=== PATIENT | male | born 1955 | race Caucasian/White ===

== ENCOUNTER 2017-02-21 11:06 | Emergency (ER) | payer BC, OTHER ==
[~2017-02-21] VITALS: Ht 175.3 cm; Wt 111.5 kg
[~2017-02-21 11:06] MED LIST: ASPI-435 PO; IBUP1CAP9 PO; MULTTAB58 PO
[2017-02-21 11:19] VITALS: TEMP 36.4; Ht 175.3 cm; Wt 111.5 kg
[2017-02-21] MEDS ORDERED: LISI-729 PO (11:26)
[2017-02-21] MEDS ORDERED: ATOR-22 PO (11:26)
[2017-02-21 11:28] VITALS: O2SAT 97
--- NOTE | 2017-02-21 11:57 | EMERGENCY ROOM VISIT NOTE ---
History Report prepared by Iram: Andre Antony Under the Supervision of: Dr. Conor Collado M.D. First contact with patient: 11:38 Chief Complaint: ALLERGIC REACTION Stated Complaint: ALLERGIC RXN Nursing Triage Summary: Pt arrives to ER via ALS s/p bee sting. Pt reports he was stung by a honey bee and approx 5 min later he became dizzy and weak. Pt then had a syncopal episode. Pt was also incontinent. When EMS arrived patient's RA O2 was 85% and they were unable to get a blood pressure. Pt was laid down and they were able to obtain a systolic BP of 100. Pt received 500 mL of NSS and 50 mg of IV benadryl [employer]. Pt also received 4 baby aspirin. Pt reports having flu-like symptoms since Thursday (light-headed, dizzy, nauseated). Pt has hives notable on abdomen and bilateral arms. Pt denies shortness of breath. Pts RA O2 saturation is 97% on arrival. History of Present Illness The patient is a 61 year old male who presents to the Emergency Room via ALS with complaints of a sudden allergic reaction that occurred around 2 and a half hours ago. He says that he was stung by a bee on his left forearm, and then got really lightheaded and passed out. The patient states that he did not hit his head, but was out for about a minute or 2. Per the patient's , the patient has had reactions to bee stings in the past but has never had this severe of a reaction. The patient notes that his tongue got numb when he was first stung, but his tongue and throat did not feel swollen. The patient denies any shortness of breath. He says that he still feels nauseous and a bit woozy. He received IV Benadryl 50 mg prior to arrival as well as 4 baby aspirin by ALS, per the nursing staff. The patient adds that he has had a flu-like illness for the past 4 days, with nausea, dizziness, and lightheadedness. Source of History: patient, spouse/significant other, nursing staff Onset: Around 2 and a half hours ago Position: other (global - allergic reactino) Quality: other (to bee sting) Timing: other (sudden) Associated Symptoms: + LOC, + nausea, + numbness (tongue which has since resolved), No SOB Note: Associated symptoms: Lightheaded, then passed out for a minute or 2. Still feels woozy. Dizziness for 4 days. Denies tongue or throat swelling. Did not hit head. Review of Systems All systems have been listed, reviewed, and are negative other than those previously mentioned. Please see Additional Medical History Sheet. Past Medical & Surgical Medical Problems: (1) Kidney disease Family History Cancer Diabetes mellitus Heart disease Social History Smoking Status: Never Smoker Alcohol Use: none Marital Status: Housing Status: lives with significant other Occupation Status: employed Current/Historical Medications Scheduled Atorvastatin (Lipitor), 20 MG PO DAILY Lisinopril (Prinivil), 5 MG PO DAILY Allergies Coded Allergies: No Known Allergies (Unverified , 02/21/17) Physical Exam Vital Signs Date Time Temp Pulse Resp B/P (MAP) Pulse Ox O2 Delivery O2 Flow Rate FiO2 02/21/17 13:00 56 16 129/68 95 Room Air 02/21/17 12:10 59 14 115/61 98 Room Air 71 143/71 125/67 02/21/17 11:28 97 Room Air 02/21/17 11:20 60 02/21/17 11:19 97 Room Air 02/21/17 11:19 36.4 58 14 131/72 97 Room Air Physical Exam GENERAL: Patient awake, alert, oriented x 3. Patient follows commands. Patient does not appear toxic. Patient is adequately hydrated and well- nourished. SKIN: Erythematous area that is 6 cm in diameter on the left forearm. HEENT: Normal head, pupils equal, reactive to light and accommodation. Oral cavity and posterior pharynx appear normal. Neck: Without adenopathy, no neck vein distention. LUNGS: Clear to auscultation. No wheezes, no rales, no rhonchi. HEART: No murmurs. No gallops. No rubs ABDOMEN: Soft and nontender. EXTREMITIES: No signs of trauma or infection other than the erythematous area on the left forearm. No calf or thigh tenderness. NEUROLOGIC: Cranial nerves II-XII within normal limits. No gross motor sensory function deficits. Medical Decision & Procedures ER Provider Diagnostic Interpretation: X ray results are stated below per my interpretation and the radiologist's interpretation. CHEST ONE VIEW PORTABLE CLINICAL HISTORY: allergic rxn dyspnea COMPARISON STUDY: 02/23/2014 FINDINGS: The bones soft tissues and hemidiaphragms are normal. The cardiomediastinal silhouette is normal. The lungs are clear. The pulmonary vasculature is normal. IMPRESSION: Negative chest. The above report was generated using voice recognition software. It may contain grammatical, syntax or spelling errors. Electronically signed by: Reyes Coy M.D. 02/21/2017 12:25 PM Dictated Date/Time: 02/21/2017 12:25 PM Laboratory Results 02/21/17 12:05 Red Blood Count 4.45, Mean Corpuscular Volume 91.2, Mean Corpuscular Hemoglobin 33.0, Mean Corpuscular Hemoglobin Concent 36.2, Mean Platelet Volume 8.5, Neutrophils (%) (Auto) 86.7, Lymphocytes (%) (Auto) 7.3, Monocytes (%) (Auto) 4.6, Eosinophils (%) (Auto) 0.9, Basophils (%) (Auto) 0.1, Neutrophils # (Auto) 7.38, Lymphocytes # (Auto) 0.62, Monocytes # (Auto) 0.39, Eosinophils # (Auto) 0.08, Basophils # (Auto) 0.01 02/21/17 12:05 Test 02/21/17 12:05 02/21/17 13:40 White Blood Count 8.51 K/uL (4.8-10.8) Red Blood Count 4.45 M/uL (4.7-6.1) Hemoglobin 14.7 g/dL (14.0-18.0) Hematocrit 40.6 % (42-52) Mean Corpuscular Volume 91.2 fL (80-100) Mean Corpuscular Hemoglobin 33.0 pg (25-34) Mean Corpuscular Hemoglobin Concent 36.2 g/dl (32-36) Platelet Count 135 K/uL (130-400) Mean Platelet Volume 8.5 fL (7.4-10.4) Neutrophils (%) (Auto) 86.7 % Lymphocytes (%) (Auto) 7.3 % Monocytes (%) (Auto) 4.6 % Eosinophils (%) (Auto) 0.9 % Basophils (%) (Auto) 0.1 % Neutrophils # (Auto) 7.38 K/uL (1.4-6.5) Lymphocytes # (Auto) 0.62 K/uL (1.2-3.4) Monocytes # (Auto) 0.39 K/uL (0.11-0.59) Eosinophils # (Auto) 0.08 K/uL (0-0.5) Basophils # (Auto) 0.01 K/uL (0-0.2) RDW Standard Deviation 43.4 fL (36.4-46.3) RDW Coefficient of Variation 13.0 % (11.5-14.5) Immature Granulocyte % (Auto) 0.4 % Immature Granulocyte # (Auto) 0.03 K/uL (0.00-0.02) Anion Gap 6.0 mmol/L (3-11) Est Creatinine Clear Calc Drug Dose 54.3 ml/min Estimated GFR () 47.3 Estimated GFR (Non- 40.8 BUN/Creatinine Ratio 13.2 (10-20) Calcium Level 8.1 mg/dl (8.5-10.1) Total Bilirubin 1.3 mg/dl (0.2-1) Aspartate Amino Transf (AST/SGOT) 20 U/L (15-37) Alanine Aminotransferase (ALT/SGPT) 38 U/L (12-78) Alkaline Phosphatase 73 U/L (45-117) Troponin I < 0.015 ng/ml (0-0.045) Total Protein 7.3 gm/dl (6.4-8.2) Albumin 3.8 gm/dl (3.4-5.0) Globulin 3.5 gm/dl (2.5-4.0) Albumin/Globulin Ratio 1.1 (0.9-2) Urine Color DK YELLOW Urine Appearance CLEAR (CLEAR) Urine pH 5.0 (4.5-7.5) Urine Specific [place] 1.024 (1.000-1.030) Urine Protein 2+ (NEG) Urine Glucose (UA) TRACE (NEG) Urine Ketones NEG (NEG) Urine Occult Blood TRACE (NEG) Urine Nitrite NEG (NEG) Urine Bilirubin NEG (NEG) Urine Urobilinogen NEG (NEG) Urine Leukocyte Esterase SMALL (NEG) Urine WBC (Auto) 5-10 /hpf (0-5) Urine RBC (Auto) 0-4 /hpf (0-4) Urine Hyaline Casts (Auto) 1-5 /lpf (0-5) Urine Epithelial Cells (Auto) 10-20 /lpf (0-5) Urine Bacteria (Auto) NEG (NEG) Laboratory results as stated above per my review. Medications Administered Medications (Trade) Dose Ordered Sig/Tameka Route Start Time Stop Time Status Last Admin Dose Admin Ondansetron HCl (Zofran Odt) 4 mg ONE ONCE SL 02/21/17 12:00 02/21/17 12:01 DC 02/21/17 12:08 4 MG ECG Indication: syncope Rate (beats per minute): 58 Rhythm: sinus bradycardia Findings: no acute ischemic change, no ectopy ED Course 1139: Past medical records reviewed. The patient was evaluated in room C7. A complete history and physical examination was performed. 1200: Ordered Zofran Odt 4 mg SL. 1336: I reevaluated the patient and he is feeling better. He noted some recent back pain concerning for kidney stones so we will do a urine. 1407: I reevaluated and updated the patient. The patient verbally expressed understanding and agreement of the treatment plan. The patient will be discharged. Medical Decision I considered multiple diagnoses including allergic reaction, syncope, viral infection, dehydration, metabolic disorder. The patient has had some viral like symptoms for the past several days with nausea and vomiting. The patient was stung by a bee today and then had a syncopal episode. The patient was given Benadryl by the paramedics but did not receive epinephrine. Multiple labs, EKG, urinalysis and imaging were obtained. Please see above. The patient has 5-10 white cells per high-power field and some epithelial cells. This may represent a concentrated urine and therefore we await culture prior to treating. The patient had no wheezes while here. He had no difficulty breathing. Patient has no evidence of an acute cardiac event. He was given IV fluids plus oral rehydration. I believe the patient was dehydrated from a previous viral infection followed by a bee sting and allergic reaction which resulted in a syncopal episode. The patient is now back to his normal state. We await urine culture prior to treatment of a UTI. The patient will be prescribed an EpiPen. Medication Reconcilliation Current Medication List: was personally reviewed by me Blood Pressure Screening Patient's blood pressure: Normal blood pressure Impression Primary Impression: Allergic reaction Additional Impressions: Dehydration Viral illness Scribe Attestation The scribe's documentation has been prepared under my direction and personally reviewed by me in its entirety. I confirm that the note above accurately reflects all work, treatment, procedures, and medical decision making performed by me. Departure Information Dispostion Home / Self-Care Prescriptions Epinephrine (EPIPEN) 0.3 Mg/0.3 Ml Inj 0.3 MG IM UD, #1 BOX 1 Refill Prov: Conor Collado M.D. 02/21/17 Referrals Larry Jones M.D. (PCP) Patient Instructions ED Bite Sting Insect Gen Allergic React, My [facility] Additional Instructions Drink at least 1 gallon of liquid over the next 24 hours. Follow-up with your family physician and have your blood sugar rechecked. We will call you if your urine culture is positive for infection. Use the EpiPen if you have a severe allergic reaction then come into the ED. Problem Qualifiers
[2017-02-21] MEDS ORDERED: ONDANSETRON 4MG OD TAB SL ONE (12:00)
[2017-02-21 12:15] LABS: BASO % 0.1 %; BASO ABS # 0.01 K/uL (0-0.2); COMPLETE YES; EOS % 0.9 %; HEMATOCRIT 40.6 % (42-52); IG% 0.4 %; LYMPH % 7.3 %; LYMPH ABS # 0.62 K/uL (1.2-3.4); MEAN CELL VOLUME 91.2 fL (80-100); MEAN CORPUSCULAR HGB CONC 36.2 g/dl (32-36); MEAN PLATELET VOLUME 8.5 fL (7.4-10.4); MONO % 4.6 %; NEUT % 86.7 %; PLATELET COUNT 135 K/uL (130-400); RED BLOOD COUNT 4.45 M/uL (4.7-6.1); WHITE BLOOD COUNT 8.51 K/uL (4.8-10.8)
--- NOTE | 2017-02-21 12:26 | DIAGNOSTIC IMAGING REPORT ---
CHEST ONE VIEW PORTABLE CLINICAL HISTORY: allergic rxn dyspnea COMPARISON STUDY: 02/23/2014 FINDINGS: The bones soft tissues and hemidiaphragms are normal. The cardiomediastinal silhouette is normal. The lungs are clear. The pulmonary vasculature is normal. IMPRESSION: Negative chest. The above report was generated using voice recognition software. It may contain grammatical, syntax or spelling errors. Electronically signed by: Reyes Coy M.D. 02/21/2017 12:25 PM Dictated Date/Time: 02/21/2017 12:25 PM
[2017-02-21 12:33] LABS: ALT/SGPT 38 U/L (12-78); AST/SGOT 20 U/L (15-37); BLOOD UREA NITROGEN 23 mg/dl (7-18); BUN/CREATININE RATIO 13.2 (10-20); CALCIUM 8.1 mg/dl (8.5-10.1); CARBON DIOXIDE 30 mmol/L (21-32); CHLORIDE 103 mmol/L (98-107); CREATININE 1.76 mg/dl (0.60-1.40); GLUCOSE 224 mg/dl (70-99); POTASSIUM 4.3 mmol/L (3.5-5.1); SODIUM 139 mmol/L (136-145)
[2017-02-21 12:38] LABS: ALB/GLOB RATIO 1.1 (0.9-2); ALKALINE PHOSPHATASE 73 U/L (45-117)
[2017-02-21 14:00] LABS: URINE APPEARANCE CLEAR (CLEAR); URINE BILIRUBIN NEG (NEG); URINE COLOR DK YELLOW; URINE NITRITE NEG (NEG); URINE SPECIFIC GRAVITY 1.024 (1.000-1.030); UROBILINOGEN NEG (NEG); ZZUR CULT IF INDIC CLEAN CATCH NO
[2017-02-21 14:01] LABS: MANUAL MICROSCOPIC REQUIRED? NO; REVIEW REQ? NO
[2017-02-21] MEDS ORDERED: EPP3/2 IM (14:15)
[2017-02-21 14:33] VITALS: BP 123/67; PULSE 55; O2SAT 97
== END 2017-02-21 14:35 | disposition home or self-care (01) ==
LOC: EDBD 11:06 → C.EDC 11:07
DX: T78.40XA Allergy, unspecified, initial encounter (principal); X58.XXXA Exposure to other specified factors, initial encounter; E86.0 Dehydration; R69 Illness, unspecified; N18.9 Chronic kidney disease, unspecified; Z83.3 Family history of diabetes mellitus; Z82.49 Family history of ischemic heart disease and other diseases of the circulatory system